=== PATIENT | female | born 1965 | race Caucasian/White ===

== ENCOUNTER → 2016-05-08 | Outpatient (CLI) | payer BC ==
--- NOTE | 2016-05-16 09:48 | MM ---
Reason for exam: screening (asymptomatic). Last mammogram was performed 2 years and 3 months ago. History: Patient is postmenopausal. Physical Findings: A clinical breast exam by your physician is recommended on an annual basis and results should be correlated with mammographic findings. MG Screening Mammo w CAD Bilateral CC and MLO view(s) were taken. Prior study comparison: January 25, 2014, mammogram, performed at [place]. There is no discrete abnormality. No significant changes when compared with prior studies. ASSESSMENT: Negative, BI-RAD 1 RECOMMENDATION: Routine screening mammogram of both breasts in 1 year.
== END | disposition home or self-care (01) ==
LOC: RADMAMWWP 10:54
PROVIDERS: ATTEND Obstetrics & Gynecology
DX: Z12.31 Encounter for screening mammogram for malignant neoplasm of breast (principal)

== ENCOUNTER → 2016-10-26 | Outpatient (CLI) | payer BC ==
--- NOTE | 2016-10-26 15:29 | XR ---
EXAMINATION TYPE: XR cervical spine comp DATE OF EXAM: 10/26/2016 COMPARISON: NONE HISTORY: Spondylosis TECHNIQUE: 5 view cervical spine FINDINGS: Odontoid is obscured by overlying occiput. Foramen are patent. Prevertebral space is normal . Disc height and vertebral body heights are preserved. Posterior spinal lamellar line is intact. IMPRESSION: 1. Normal cervical spine.
== END | disposition home or self-care (01) ==
LOC: RADXRYALE 14:17
PROVIDERS: ATTEND Internal Medicine
DX: M47.892 Other spondylosis, cervical region (principal)
CPT/HCPCS: 72050

== ENCOUNTER → 2016-11-02 | Outpatient (CLI) | payer BC ==
--- NOTE | 2016-11-03 08:38 | US ---
EXAMINATION TYPE: US thyroid st tissue head/neck DATE OF EXAM: 11/02/2016 COMPARISON: NONE CLINICAL HISTORY: 51-year-old female E05.90 Thyrotoxia. TECHNIQUE: Multiple sonographic images of the thyroid gland are obtained. FINDINGS: Right Lobe: 4.3 x 1.3 x 1.5 cm Left Lobe: 4.2 x 1.5 x 1.0 cm Isthmus Thickness: 0.3 cm There is homogeneous glandular parenchyma without discrete nodule. Bilateral neck scanned, no evidence of lymphadenopathy. IMPRESSION: Normal sonographic appearance to the thyroid gland. No discrete nodule.
== END | disposition home or self-care (01) ==
LOC: RADUSMAIN 15:51
PROVIDERS: ATTEND Internal Medicine
DX: E05.90 Thyrotoxicosis, unspecified without thyrotoxic crisis or storm (principal)
CPT/HCPCS: 76536

== ENCOUNTER → 2016-11-20 | Outpatient (CLI) | payer BC ==
--- NOTE | 2016-11-21 11:56 | NM ---
EXAMINATION TYPE: NM thyroid image w uptake DATE OF EXAM: 11/21/2016 COMPARISON: Thyroid ultrasound November 02, 2016. HISTORY: Thyrotoxicosis per order. TECHNIQUE: After the intravenous administration of 10.78 mCi Tc 99m Sodium Pertechnetate, thyroid louise ging is performed 10 minutes post injection. Thyroid iodine uptake is calculated after the oral admin istration of18.6 NM uCi I-131 capsule. FINDINGS: There is normal distribution of activity throughout the gland on scan images. The 4 hour i odine uptake is calculated at 6%, slightly deviated from the normal range (normal range 8-14%). The 2 4-hour iodine uptake is calculated at 16% (normal range 15-35%), lower limits of normal. IMPRESSION: Normal thyroid scan with uptake lower limits of normal.
== END | disposition home or self-care (01) ==
LOC: RADNMMAIN 10:40
PROVIDERS: ATTEND Internal Medicine
DX: E05.90 Thyrotoxicosis, unspecified without thyrotoxic crisis or storm (principal)
CPT/HCPCS: 78014; A9528; A9512

== ENCOUNTER → 2017-03-29 | Outpatient (CLI) | payer BC ==
--- NOTE | 2017-03-29 15:20 | XR ---
EXAMINATION TYPE: XR knee complete RT DATE OF EXAM: 03/29/2017 CLINICAL HISTORY: Right knee pain for 6 months TECHNIQUE: Three views of the right knee are obtained. COMPARISON: None. FINDINGS: There is no acute fracture/dislocation evident in right knee. There is mild spurring hurley lofemoral compartment. There is mild joint space loss medial tibiofemoral compartment. The overlying soft tissue appears unremarkable. IMPRESSION: There are mild degenerative changes in right knee as detailed above.
--- NOTE | 2017-03-29 15:22 | XR ---
EXAMINATION TYPE: XR abdomen 1V DATE OF EXAM: 03/29/2017 1:52 PM CLINICAL HISTORY: Bilateral flank pain and pressure, history of kidney stones. TECHNIQUE: Single supine KUB image of the abdomen is obtained. COMPARISON: None. FINDINGS: There is 7 mm calculus left kidney felt midpole level inferior L2 level. There is no defini te right-sided nephrolithiasis. Left-sided pelvic phleboliths are felt present. Cholecystectomy clips are noted. There are surgical clips and sutures epigastric region presumed rela scott to gastric bypass surgery. There is overall nonobstructive bowel gas pattern. Visualized osseous structures are intact. IMPRESSION: There is 7 mm left renal calculus.
== END | disposition home or self-care (01) ==
LOC: RADXRYALE 13:39
PROVIDERS: ATTEND Internal Medicine
DX: N20.0 Calculus of kidney (principal); M22.2X2 Patellofemoral disorders, left knee; M25.861 Other specified joint disorders, right knee; M25.561 Pain in right knee
CPT/HCPCS: 74018

== ENCOUNTER 2017-07-26 07:27 | Day surgery (SDC) | payer BC ==
[2017-07-24 12:22] VITALS: BMI 28.9
[~2017-07-26 07:27] MED LIST: LIDOCAINE 1% 20 ML VIAL (10MG/ML) FOR IV START INTRADERMA PRN; MIDAZOLAM 2 MG/2 ML VIAL IV PRN
[2017-07-26 07:47] VITALS: TEMP 98
[2017-07-26] MEDS: LACTATED RINGERS 1,000 ML IV SCH ×2 (08:07→08:48)
[2017-07-26] MEDS ORDERED: PROPOFOL 10 MG/ML 20 ML VIAL IV ONE (08:49)
--- NOTE | 2017-07-26 09:12 | P.PCN ---
Date of Procedure: 07/26/17 Procedure(s) Performed: BRIEF HISTORY: Patient is a 52-year-old pleasant white female scheduled for an elective colonoscopy as a part of screening for colorectal neoplasia. PROCEDURE PERFORMED: Colonoscopy. PREOPERATIVE DIAGNOSIS: Screening for colon cancer. IV sedation per Anesthesia. PROCEDURE: After informed consent was obtained, the patient, was brought into the endoscopy unit. IV sedation was administered by Anesthesia under continuous monitoring. Digital rectal examination was normal. Initially the Olympus CF- 160 flexible video colonoscope was then inserted in the rectum, gradually advanced into the cecum without any difficulty. Careful examination was performed as the scope was gradually being withdrawn. Ileocecal valve and the appendiceal orifice were visualized and appeared normal. Prep was excellent. Mucosa of the cecum, ascending colon, transverse colon, descending colon, sigmoid colon, and rectum appeared normal. Retroflexion was performed in the rectum and no lesions were seen. The patient tolerated the procedure well. IMPRESSION: Normal-appearing colon from rectum to cecum with no evidence of colorectal neoplasia but. RECOMMENDATIONS: Findings of this examination were discussed with the patient as his family. She was advised to have a repeat screening colonoscopy in 10 years.
[2017-07-26 09:22] VITALS: RESP 16
[2017-07-26] MEDS ORDERED: IBUPROFEN 200 MG TAB PO ONE (09:30)
[2017-07-26 09:34] VITALS: BP 124/81; PULSE 58
== END 2017-07-26 09:59 | disposition home or self-care (01) ==
LOC: ORWHC2ENDO 07:27
PROVIDERS: ATTEND Internal Medicine Gastroenterology
DX: Z12.11 Encounter for screening for malignant neoplasm of colon (principal); Z79.899 Other long term (current) drug therapy
CPT/HCPCS: J2704; G0121

== ENCOUNTER → 2018-04-18 | Outpatient (CLI) | payer BC ==
--- NOTE | 2018-04-21 14:59 | MM ---
Reason for exam: screening (asymptomatic). Last mammogram was performed 1 year and 11 months ago. History: Patient is postmenopausal. Physical Findings: A clinical breast exam by your physician is recommended on an annual basis and results should be correlated with mammographic findings. MG Screening Mammo w CAD Bilateral CC and MLO view(s) were taken. Prior study comparison: May 08, 2016, bilateral MG screening mammo w CAD. January 25, 2014, mammogram, performed at [place]. The breast tissue is heterogeneously dense. This may lower the sensitivity of mammography. There is no discrete abnormality. No significant changes when compared with prior studies. ASSESSMENT: Negative, BI-RAD 1 RECOMMENDATION: Routine screening mammogram of both breasts in 1 year.
== END ==
LOC: RADMAMWWP 09:13
PROVIDERS: ATTEND Obstetrics & Gynecology
DX: Z12.31 Encounter for screening mammogram for malignant neoplasm of breast (principal)
CPT/HCPCS: 77067

== ENCOUNTER → 2018-04-18 | Outpatient (CLI) | payer BC ==
--- NOTE | 2018-04-18 11:22 | BD ---
EXAMINATION TYPE: Axial Bone Density DATE OF EXAM: 04/18/2018 COMPARISON: NONE CLINICAL HISTORY: 53 YR OLD FEMALE....ICD-10 CODE: Z13.820 OSTEOPOROSIS SCREENING Height: 60.5 Weight: 160 FRAX RISK QUESTIONS: History of Fracture in Adulthood: YES RISK FACTORS HISTORY OF: HX OF BILAT FEET FRACTURES, RT BREAK AT AGE 53 Active: FAIRLY Postmenopausal woman: YES, AT AGE 49 MEDICATIONS: Additional Medications: CALCIUM AND VIT D, Additional History: NOTHING ADDITIONAL TO ADD EXAM MEASUREMENTS: Bone mineral densitometry was performed using the Miyowa System. Bone mineral density as measured about the Lumbar spine is: ----- L1-L4(G/cm2): 1.338 T Score Values are as follows: ----- L1: 1.0 ----- L2: 1.4 ----- L3: 1.8 ----- L4: 0.9 ----- L1-L4: 1.3 Bone mineral density FIRST DEXA SCAN AT [facility] Bone mineral density about the R hip (g/cm2): 1.174 Bone mineral density about the L hip (g/cm2): 1.144 T Score values are as follows: -----R Neck: 1.0 -----L Neck: 0.6 -----R Total: 1.3 -----L Total: 1.1 Bone mineral density FIRST DEXA SCAN AT [facility] FRAX%s: THERE IS A 6.5% CHANCE FOR A MAJOR OSTEOPOROTIC FX AND A 0.1% FOR HIP....PROBABILITY OF FX IN 10 YRS TIME IMPRESSION: No evidence for osteoporosis or osteopenia. NOTE: T-SCORE=SD OF THE YOUNG ADULT MEAN.
== END | disposition home or self-care (01) ==
LOC: RADBDWWP 09:17
PROVIDERS: ATTEND Psychiatry & Neurology Neurology
DX: Z13.820 Encounter for screening for osteoporosis (principal)
CPT/HCPCS: 77080

== ENCOUNTER → 2019-05-05 | Outpatient (CLI) | payer BC ==
--- NOTE | 2019-05-06 10:50 | MM ---
Reason for exam: screening (asymptomatic). Last mammogram was performed 1 year and 1 month ago. History: Patient is postmenopausal. Took hormonal contraceptives for 10 years. Physical Findings: A clinical breast exam by your physician is recommended on an annual basis and results should be correlated with mammographic findings. MG 3D Screening Mammo W/Cad Bilateral CC and MLO view(s) were taken. Prior study comparison: April 18, 2018, bilateral MG screening mammo w CAD. May 08, 2016, bilateral MG screening mammo w CAD. There are scattered fibroglandular densities. Benign appearing bilateral calcifications. No suspicious abnormality. No significant changes when compared with prior studies. ASSESSMENT: Benign, BI-RAD 2 RECOMMENDATION: Routine screening mammogram of both breasts in 1 year.
== END | disposition home or self-care (01) ==
LOC: RADMAMWWP 07:28
PROVIDERS: ATTEND Obstetrics & Gynecology
DX: Z12.31 Encounter for screening mammogram for malignant neoplasm of breast (principal)
CPT/HCPCS: 77063; 77067

== ENCOUNTER → 2020-06-14 | Outpatient (CLI) | payer BC ==
--- NOTE | 2020-06-15 13:40 | MM ---
Reason for exam: screening (asymptomatic). Last mammogram was performed 1 year and 1 month ago. History: Patient is postmenopausal. Took hormonal contraceptives for 10 years. Physical Findings: A clinical breast exam by your physician is recommended on an annual basis and results should be correlated with mammographic findings. MG 3D Screening Mammo W/Cad Bilateral CC, MLO, and XCCL view(s) were taken. Prior study comparison: May 05, 2019, bilateral MG 3d screening mammo w/cad. April 18, 2018, bilateral MG screening mammo w CAD. There are scattered fibroglandular densities. No significant changes when compared with prior studies. ASSESSMENT: Benign, BI-RAD 2 RECOMMENDATION: Routine screening mammogram of both breasts in 1 year.
== END ==
LOC: RADMAMWWP 13:29
PROVIDERS: ATTEND Obstetrics & Gynecology
DX: Z12.31 Encounter for screening mammogram for malignant neoplasm of breast (principal); Z78.0 Asymptomatic menopausal state
CPT/HCPCS: 77063; 77067

== ENCOUNTER → 2020-09-24 | Outpatient (CLI) | payer BC ==
--- NOTE | 2020-09-24 17:19 | MR ---
EXAMINATION TYPE: MR brain wo/w con DATE OF EXAM: 09/24/2020 COMPARISON: 07/19/2015 HISTORY: Bilateral leg weakness, greater on the right. MS, compare to prior MR 07-19-15. CONTRAST: Standard multiplanar, multisequence MRI departmental protocol utilizing 10 mL intravenous Gadavist ga dolinium contrast. Ventricles have normal size. There is no mass effect nor midline shift. The diffusion images show no sign of an acute infarct. There is 3 mm focus of increased signal in the white matter left posterior temporal lobe. There is similar 3 mm focus right posterior frontal lobe white matter. There are 2 sm all 2 mm foci of increased signal in the left frontal lobe white matter. There is no evidence of cere bral cortical edema. The sella turcica appears normal. There is 5 mm area of mild increased signal in the body of the corpus callosum on the FLAIR images. Brainstem is intact. There is no evidence of or bital mass. There is normal enhancement of the venous sinuses. There is no pathologic enhancement. IMPRESSION: White matter mild signal changes would be consistent with demyelinating disease. No adverse change co mpared to old exam. No evidence of any new lesion.
== END | disposition home or self-care (01) ==
LOC: RADMRIMAIN 08:04
PROVIDERS: ATTEND Psychiatry & Neurology Neurology
DX: G35 Multiple sclerosis (principal)
CPT/HCPCS: 70553; A9585

== ENCOUNTER → 2020-11-16 | Outpatient (CLI) | payer BC | END | disposition home or self-care (01) | LOC: LABWHC1 14:05 | PROVIDERS: ATTEND Emergency Medicine | DX: Z20.822 Contact with and (suspected) exposure to COVID-19 (principal) | CPT/HCPCS: 87635; C9803 ==

== ENCOUNTER → 2020-11-17 | Outpatient (CLI) | payer BC | END | disposition home or self-care (01) | LOC: LABWHC1 14:15 | PROVIDERS: ATTEND Emergency Medicine | DX: Z20.822 Contact with and (suspected) exposure to COVID-19 (principal) | CPT/HCPCS: 87635; C9803 ==

== ENCOUNTER → 2021-01-10 | Outpatient (CLI) | payer BC, OTHER | END | disposition home or self-care (01) | LOC: LABWHC1 09:56 | PROVIDERS: ATTEND Emergency Medicine | DX: Z20.822 Contact with and (suspected) exposure to COVID-19 (principal) | CPT/HCPCS: 87635 ==

== ENCOUNTER → 2021-02-11 | Outpatient (CLI) | payer BC ==
[2021-02-11 18:00] LABS: HCT 43.6 % (37.2-46.3); HGB 14.1 g/dL (12.0-15.0); MCH 30.5 pg (27.0-32.0); MCHC 32.3 g/dL (32.0-37.0); MCV 94.2 fL (80.0-97.0); Mean Platelet Volume 10.8 fL (9.5-12.2); Platelet Count 277 X 10*3/uL (140-440); RBC 4.63 X 10*6/uL (4.10-5.20); RDW 13.2 % (11.5-14.5); WBC 5.05 X 10*3/uL (4.50-10.00)
[2021-02-11 20:50] LABS: % Iron Saturation 32.01 (12.00-45.00); ALT 27 U/L (8-44); AST 25 U/L (13-35); African American GFR (CKD) 105.3 (60.0-200.0); Albumin 4.1 g/dL (3.8-4.9); Albumin/Globulin Ratio 1.74 (1.60-3.17); Alkaline Phosphatase 103 U/L (41-126); BUN/Creat Ratio 25.03 Ratio (12.00-20.00); Blood Urea Nitrogen 18.8 mg/dL (9.0-27.0); Calcium 9.1 mg/dL (8.7-10.3); Carbon Dioxide 20.7 mmol/L (21.6-31.8); Chloride 108 mmol/L (96-109); Chol/HDL Ratio 4.09 Ratio; Ferritin 73.3 ng/mL (10.0-291.0); Globulin 2.3 g/dL (1.6-3.3); Glucose 133 mg/dL (70-110); Iron 108 ug/dL (50-170); LDL Cholesterol,Calculated 134.5 mg/dL (0.0-131.0); Magnesium 1.9 mg/dL (1.5-2.4); Non-African American GFR(CKD) 90.9 (60.0-200.0); Phosphorus 3.5 mg/dL (2.4-5.1); Potassium 4.3 mmol/L (3.5-5.5); Prealbumin 25.1 mg/dL (18.0-42.0); Sodium 141 mmol/L (135-145); Total Bilirubin <0.20 mg/dL (0.30-1.20); Total Iron Binding Capacity 337 ug/dL (228-460); Total Protein 6.4 g/dL (6.2-8.2)
[2021-02-11 20:54] LABS: INR 0.95 (0.90-1.11); Partial Thromboplastin Time 28.2 sec (23.5-31.0); Prothrombin Time 10.8 sec (9.9-11.9)
[2021-02-11 21:34] LABS: Folate, Serum >20.00 ng/mL (4.40-31.00)
[2021-02-13 13:26] LABS: Zinc, Serum 70 ug/dL (60-130)
[2021-02-13 15:15] LABS: Anabasine Urine <2.0 ng/mL (<2.0)
[2021-02-14 06:42] LABS: Vitamin A 66 ug/dL (38-106)
[2021-02-14 11:42] LABS: Vit B1(Thiamine) 62 ug/L (38-122)
== END | disposition home or self-care (01) ==
LOC: LABWHC1 10:05
PROVIDERS: ATTEND Surgery Plastic and Reconstructive Surgery
DX: Z71.51 Drug abuse counseling and surveillance of drug abuser (principal); K50.90 Crohn's disease, unspecified, without complications; N19 Unspecified kidney failure; E55.9 Vitamin D deficiency, unspecified; E44.0 Moderate protein-calorie malnutrition; D50.8 Other iron deficiency anemias; E89.1 Postprocedural hypoinsulinemia
CPT/HCPCS: 36415; 80053; 80061; 80323; 82306; 82525; 82607; 82728; 82746; 83036; 83540; 83550; 83735; 83970; 84100; 84134; 84255; 84425; 84443; 84590; 84630; 85027; 85610; 85730; 93005

== ENCOUNTER → 2021-03-15 | Outpatient (CLI) | payer BC, OTHER | END | disposition home or self-care (01) | LOC: LABWHC1 07:49 | PROVIDERS: ATTEND Emergency Medicine | DX: Z20.822 Contact with and (suspected) exposure to COVID-19 (principal) | CPT/HCPCS: 87635 ==

== ENCOUNTER → 2021-03-16 | Outpatient (CLI) | payer BC ==
--- NOTE | 2021-03-16 13:14 | FL ---
SINGLE CONTRAST ESOPHAGRAM: CLINICAL HISTORY: 56-year-old female R1 3.10, dysphagia, patient with GERD and difficulty swallowing . History of sleeve gastrectomy in 2015. TECHNIQUE: Single contrast exam performed with thin barium. Total fluoroscopy time: 1 minute 31 seconds. Total images: 33. FINDINGS: The patient swallowed oral contrast without difficulty or delay. Esophageal peristalsis and motility are within normal limits. There is prompt passage of contrast from the esophagus into the stomach. There are postsurgical spann es of sleeve gastrectomy demonstrated with a mild overdistention of the sleeve. During prone drinking, a small sliding hiatal hernia becomes evident. Gastroesophageal reflux could not be elicited with Valsalva or positional maneuvers. IMPRESSION: 1. Small sliding hiatal hernia which becomes apparent on the prone drinking images. Unable to elicit gastroesophageal reflux during the course of the exam. 2. Relatively dilated appearing gastric sleeve may explain the patient's recurrent weight gain. Clini jeanie correlate.
== END | disposition home or self-care (01) ==
LOC: RADUSWWP 09:50
PROVIDERS: ATTEND Surgery Plastic and Reconstructive Surgery
DX: K44.9 Diaphragmatic hernia without obstruction or gangrene (principal); R13.10 Dysphagia, unspecified; Z98.84 Bariatric surgery status
CPT/HCPCS: 74220

== ENCOUNTER → 2021-03-16 | Outpatient (CLI) | payer BC, OTHER | END | disposition home or self-care (01) | LOC: LABWHC1 08:02 | PROVIDERS: ATTEND Emergency Medicine | DX: Z20.822 Contact with and (suspected) exposure to COVID-19 (principal) | CPT/HCPCS: 87635 ==

== ENCOUNTER → 2021-05-12 | Outpatient (CLI) | payer BC ==
[2021-05-13 14:29] LABS: Coronavirus SARS CoV-2 Not Detected (Not Detected)
== END | disposition home or self-care (01) ==
LOC: LABPAT 08:12
PROVIDERS: ATTEND Surgery Plastic and Reconstructive Surgery
DX: Z03.818 Encounter for observation for suspected exposure to other biological agents ruled out (principal); Z20.822 Contact with and (suspected) exposure to COVID-19
CPT/HCPCS: U0003; C9803; U0005

== ENCOUNTER → 2021-05-15 | Day surgery (SDC) | payer BC ==
[2021-05-10 18:14] VITALS: BMI 43.0
[~2021-05-15] MED LIST changes: +LACTATED RINGERS 1,000 ML IV SCH; +LIDOCAINE 1% (10MG/ML) FOR IV START INTRADERMA PRN; -LIDOCAINE 1% 20 ML VIAL (10MG/ML) FOR IV START INTRADERMA PRN; +LIDOCAINE 1% INJ 10MG/ML (20 ML MDV) ONE; -MIDAZOLAM 2 MG/2 ML VIAL IV PRN; +PROPOFOL 10 MG/ML 20 ML VIAL IV ONE
--- NOTE | 2021-05-15 07:49 | P.GSHP ---
History of Present Illness H&P Date: 05/15/21 CHIEF COMPLAINT: GERD HISTORY OF PRESENT ILLNESS: The patient is a 56-year-old female who presents reports gastroesophageal reflux disease. Upper endoscopy was offered for further evaluation and management. PAST MEDICAL HISTORY: Please see list. PAST SURGICAL HISTORY: Please see list. MEDICATIONS: Please see list. ALLERGIES: Please see list. SOCIAL HISTORY: No illicit drug use FAMILY HISTORY: No reports of Crohn disease or ulcerative colitis. REVIEW OF ORGAN SYSTEMS: CONSTITUTIONAL: No reports of fevers or chills. GI: Denies any blood in stools or constipation. PHYSICAL EXAM: VITAL SIGNS: Stable GENERAL: Well-developed and pleasant in no acute distress. HEENT: No scleral icterus. Extraocular movements grossly intact. Moist buccal mucosa. NECK: Supple without lymphadenopathy. CHEST: Unlabored respirations. Equal bilateral excursions. CARDIOVASCULAR: Regular rate and rhythm. Distal 2+ pulses. ABDOMEN: Soft, nondistended. MUSCULOSKELETAL: No clubbing, cyanosis, or edema. ASSESSMENT: 1. Gastroesophageal reflux disease PLAN: 1. Recommend proceeding with an upper endoscopy Past Medical History Past Medical History: Fibromyalgia, GERD/Reflux, Neurologic Disorder, Osteoarthritis (OA) Additional Past Medical History / Comment(s): multiple sclerosis. History of Any Multi-Drug Resistant Organisms: None Reported Past Surgical History: Appendectomy, Bariatric Surgery, Cholecystectomy, Orthopedic Surgery, Tubal Ligation Additional Past Surgical History / Comment(s): gastric sleeve 2015. ORIF left 5th metatarsal. right knee arthoscopy. bilateral cataracts. multiple laser surgeries on bilateral eyes. Past Anesthesia/Blood Transfusion Reactions: No Reported Reaction Smoking Status: Former smoker - Past Family History Mother Family Medical History: Cancer Father Family Medical History: Cancer, Deep Vein Thrombosis (DVT) Medications and Allergies Home Medications Medication Instructions Recorded Confirmed Type Baclofen [Lioresal] 20 mg PO HS 07/24/17 05/10/21 History Cholecalciferol [Vitamin D3 (25 25 mcg PO DAILY 02/08/21 05/10/21 History Mcg = 1000 Iu)] Acyclovir [Zovirax] 200 mg PO DIRECTED PRN 05/10/21 05/10/21 History Butalb/Acetaminophen/Caffeine 1 - 2 cap PO Q4HR PRN 05/10/21 05/10/21 History [Fioricet 50-300-40 mg Capsule] Allergies Allergy/AdvReac Type Severity Reaction Status Date / Time No Known Allergies Allergy Verified 05/10/21 18:09
[2021-05-15 08:45] VITALS: TEMP 97.1
[2021-05-15 09:40] VITALS: RESP 16
--- NOTE | 2021-05-15 09:42 | P.PCN ---
Date of Procedure: 05/15/21 Description of Procedure: PREOPERATIVE DIAGNOSIS: Morbid obesity due to excess calories, BMI 44.5 Status post sleeve gastrectomy. Gastroesophageal reflux disease. Epigastric abdominal pain. POSTOPERATIVE DIAGNOSIS: Morbid obesity due to excess calories, BMI 44.5 Status post sleeve gastrectomy. Gastroesophageal reflux disease. Epigastric abdominal pain. Diaphragmatic hiatal hernia without obstruction. Chronic superficial gastritis. OPERATION: Esophagogastroduodenoscopy with cold forceps biopsies along the antrum. SURGEON: Rima Nj MD ANESTHESIA: MAC. INDICATIONS: The patient is a 56-year-old female who presents with a history of sleeve gastrectomy with gastroesophageal reflux disease. She is over 5 years out from her bariatric procedure. Benefits and risks of the procedure were described. Informed consent was obtained. DESCRIPTION: The patient was brought into the endoscopy suite and laid in the left lateral decubitus position. An Olympus gastroscope was passed along the posterior oropharynx down to the distal esophagus where the squamocolumnar junction was at 33 centimeters from the incisors remarkable for chronic erosive esophagitis, LA grade A without ulceration. The stomach was entered where she had a 2-cm hiatal hernia with a diaphragmatic hiatus found at 35 cm. The sleeve reservoir slightly enlarged. Chronic gastritis albeit mild was found along the antrum with cold biopsies obtained. The first through third portion of the duodenum was examined and unremarkable. The scope again had retroflexed along the antrum. The stomach was desufflated. The patient tolerated the procedure well. FINDINGS: No acute ulceration found along her sleeve. No corkscrewing sleeve gastrectomy. Squamocolumnar junction at 33 cm from the incisors. Diaphragmatic hiatus at 35 cm. Mildly enlarged gastric reservoir with prior history of sleeve gastrectomy allowing retroflexion of the gastroscope. Hiatal hernia 2 cm, fixed. LA grade A erosive esophagitis. No active duodenitis. Chronic gastritis. RECOMMENDATIONS: Upper endoscopy as needed. May benefit from antireflux operation. Continue with current therapy. Plan - Discharge Summary Discharge Rx Participant: No New Discharge Prescriptions: Continue Baclofen [Lioresal] 20 mg PO HS Cholecalciferol [Vitamin D3 (25 Mcg = 1000 Iu)] 25 mcg PO DAILY Butalb/Acetaminophen/Caffeine [Fioricet 50-300-40 mg Capsule] 1 - 2 cap PO Q4HR PRN PRN Reason: Migraine Headache Acyclovir [Zovirax] 200 mg PO DIRECTED PRN PRN Reason: Cold Sores Discharge Medication List Baclofen [Lioresal] 20 mg PO HS 07/24/17 [History] Cholecalciferol [Vitamin D3 (25 Mcg = 1000 Iu)] 25 mcg PO DAILY 02/08/21 [History] Acyclovir [Zovirax] 200 mg PO DIRECTED PRN 05/10/21 [History] Butalb/Acetaminophen/Caffeine [Fioricet 50-300-40 mg Capsule] 1 - 2 cap PO Q4HR PRN 05/10/21 [History] [place] [facility] [facility] [place] Patient Instructions/Handouts: Hiatal Hernia (DC), Gastroesophageal Reflux Disease (DC) Discharge Disposition: HOME SELF-CARE
[2021-05-15 09:52] VITALS: BP 138/102; PULSE 66
== END | disposition home or self-care (01) ==
LOC: ORWHC2ENDO 08:05
PROVIDERS: ATTEND Surgery Plastic and Reconstructive Surgery
DX: K29.50 Unspecified chronic gastritis without bleeding (principal); K21.9 Gastro-esophageal reflux disease without esophagitis; K44.9 Diaphragmatic hernia without obstruction or gangrene; E66.01 Morbid (severe) obesity due to excess calories; Z68.41 Body mass index [BMI] 40.0-44.9, adult; Z98.84 Bariatric surgery status; M79.7 Fibromyalgia; Z87.891 Personal history of nicotine dependence; M19.90 Unspecified osteoarthritis, unspecified site; G35 Multiple sclerosis; Z90.49 Acquired absence of other specified parts of digestive tract; Z98.51 Tubal ligation status; Z98.42 Cataract extraction status, left eye; Z98.41 Cataract extraction status, right eye; Z98.890 Other specified postprocedural states; Z80.9 Family history of malignant neoplasm, unspecified; Z82.49 Family history of ischemic heart disease and other diseases of the circulatory system; Z79.891 Long term (current) use of opiate analgesic; Z79.899 Other long term (current) drug therapy
CPT/HCPCS: 88305; 43239; J2001; J2704

== ENCOUNTER → 2021-05-24 | Outpatient (CLI) | payer BC ==
--- NOTE | 2021-05-24 16:50 | P.BASOAP ---
Subjective Progress Note Date: 05/24/21 DATE OF SERVICE: 05/24/2021 CHIEF COMPLAINT: Status post sleeve gastrectomy HISTORY OF PRESENT ILLNESS: Raina Cintron is a 55-year-old female status post sleeve gastrectomy in 2014 at [facility] with Dr. Lerner. She is 7 years out. She comesin with weight re-gain and gastroesophageal reflux disease for over 1 year. At height of 5 feet 0 inches, her ideal body weight is 127 pounds. Her highest weight is 250 pounds, body mass index 48.9. Her lowest weight was 128 pounds in 2016. She has gained 102 pounds in 5 years. She comes in 227 pounds from 230 pounds, 4 months ago. She has lost 4 pounds, 4 months. Her body mass index is 44.3. She has lost 23 pounds lifetime. Lifetime percent excess weight loss of 19%. PAST MEDICAL HISTORY: 1. Morbid obesity due to excess calories 2. Body mass index of 48.9, initial 3. Osteoarthritis of the knees. 4. Multiple sclerosis 5. Hypothyroidism 6. Gastroesophageal reflux disease 7. Migraines 8. Fibromyalgia PAST SURGICAL HISTORY: 1. Sleeve gastrectomy, 2014 2. ORIF 5th toe, left 3. Right knee arthroscopy 4. Bilateral cataract removal 5. Appendectomy 6. Cholecystectomy 7. Tubal ligation HOME MEDICATIONS: Home Medications Medication Instructions Recorded Confirmed Baclofen [Lioresal] 20 mg PO HS 07/24/17 05/25/21 Cholecalciferol [Vitamin D3 (25 25 mcg PO DAILY 02/08/21 05/25/21 Mcg = 1000 Iu)] Acyclovir [Zovirax] 200 mg PO DIRECTED PRN 05/10/21 05/25/21 Butalb/Acetaminophen/Caffeine 1 - 2 cap PO Q4HR PRN 05/10/21 05/25/21 [Fioricet 50-300-40 mg Capsule] Previous Rx's Medication Instructions Recorded Levothyroxine Sodium [Synthroid] 50 mcg PO DAILY #30 tab 05/24/21 ALLERGIES: Allergies Allergy/AdvReac Type Severity Reaction Status Date / Time No Known Allergies Allergy Verified 05/10/21 18:09 SOCIAL HISTORY: Past tobacco use. FAMILY HISTORY: No family history of ulcerative colitis disease or Crohn's disease. Family history of morbid obesity. No lupus in the family. No reports of stomach or esophageal cancer. Has family history of DVT. Her mother, sister has trouble with weight. REVIEW OF ORGAN SYSTEMS: CONSTITUTIONAL: At height of 5 feet 0 inches, her ideal body weight is 127 pounds. Her highest weight is 250 pounds, body mass index 48.9. Her lowest weight was 128 pounds in 2016. Her body mass index is 45.1. HEENT: Denies any active troubles with vision or hearing. ENDOCRINE: Denies diabetes. Has hypothyroidism. CARDIOVASCULAR: Denies past reports of palpitations or heart attacks or chest pain. RESPIRATORY: Has daytime somnolence. Debies asthma. GASTROINTESTINAL: Denies any bright red blood per rectum. No diarrhea. No constipation. Has gastroesophageal reflux disease. GENITOURINARY: Denies bladder urgency. No recent blood in urine MUSCULOSKELETAL: Has lower back pain and joint pain. Has osteoarthritis of the knees. Has fibromyalgia. NEURO: Has migraines. No seizure disorders. PSYCH: Denies depression. No suicidal ideation. RHEUMATOLOGIC: No lupus. No rheumatoid arthritis. HEMATOLOGIC: Denies any abnormal bleeding or bruising. Family history of DVTs. SKIN: No rash. No skin cancer. PHYSICAL EXAM: VITAL SIGNS: Height 5 foot 0 inches, weight 227 pounds. BMI 44.3 Vital Signs Temp 97.9 F 05/24/21 16:57 Pulse 99 05/24/21 16:57 Resp BP 134/85 05/24/21 16:57 Pulse Ox GENERAL: Well-developed in no acute distress. HEENT: No scleral icterus. Extraocular movements grossly intact. Hears conversational speech. No nasal drainage. NECK: Supple without lymphadenopathy. CHEST: Nonlabored respirations with equal bilateral excursions. CARDIOVASCULAR: Regular rate and regular rhythm. Distal 2+ pulses. ABDOMEN: Obese, soft, nontender, nondistended. MUSCULOSKELETAL: No clubbing, cyanosis. NEURO: No focal or lateralizing signs. Cranial nerves 2 through 12 grossly within normal limits. PSYCH: Appropriate affect. Alert and oriented to person, place and time. SKIN: Good skin turgor. Well perfused. LABS: Reviewed. Triglycerides elevated. Cholesterol elevated. TSH 1.930. EGD FINDINGS: No acute ulceration found along her sleeve. No corkscrewing sleeve gastrectomy. Squamocolumnar junction at 33 cm from the incisors. Diaphragmatic hiatus at 35 cm. Mildly enlarged gastric reservoir with prior history of sleeve gastrectomy allowing retroflexion of the gastroscope. Hiatal hernia 2 cm, fixed. LA grade A erosive esophagitis. No active duodenitis. Chronic gastritis. EKG: Low voltage. Final Pathologic Diagnosis STOMACH, ANTRUM, BIOPSY: Mild chronic gastritis. No Helicobacter organisms seen on H+E staining. STUDIES: Barium swallow with hiatal hernia. This is my independent interpretation. ASSESSMENT: 1. Morbid obesity due to excess calories 2. Body mass index of 48.9, initial to 44.3 3. Osteoarthritis of the knees. 4. Multiple sclerosis 5. Hypothyroidism 6. Gastroesophageal reflux disease 7. Migraines 8. Fibromyalgia 9. Status post sleeve gastrectomy 10. Weight gain following bariatric procedure PLAN: 1. She has TSH above 1.0. Will try synthroid 25 mcg to increase metabolism. 2. She has a new hiatal hernia which may benefit from repair Assessment/Plan Plan: Date: Initial Weight: 113.398 kg Initial BMI: Current Weight: Current BMI: Type of Surgery: Total Volume in Band: Previous Volume: Volume Removed: Volume Added: Band Size:
[2021-05-24 16:58] VITALS: BP 134/85; PULSE 99; TEMP 97.9; BMI 44.3
== END ==
LOC: BARWHC3 16:49
PROVIDERS: ATTEND Surgery Plastic and Reconstructive Surgery
DX: E66.01 Morbid (severe) obesity due to excess calories (principal); M17.0 Bilateral primary osteoarthritis of knee; G35 Multiple sclerosis; E03.9 Hypothyroidism, unspecified; K21.9 Gastro-esophageal reflux disease without esophagitis; G43.909 Migraine, unspecified, not intractable, without status migrainosus; M79.7 Fibromyalgia; Z98.84 Bariatric surgery status; Z79.890 Hormone replacement therapy; Z87.891 Personal history of nicotine dependence; Z68.41 Body mass index [BMI] 40.0-44.9, adult
CPT/HCPCS: 99211

== ENCOUNTER → 2021-09-11 | Outpatient (CLI) | payer BC ==
[2021-09-11 13:14] VITALS: BMI 44.3
== END ==
LOC: BARWHC3 08:42
PROVIDERS: ATTEND Surgery Plastic and Reconstructive Surgery
DX: E66.01 Morbid (severe) obesity due to excess calories (principal); Z71.3 Dietary counseling and surveillance; Z87.891 Personal history of nicotine dependence; Z68.41 Body mass index [BMI] 40.0-44.9, adult
CPT/HCPCS: 97804

== ENCOUNTER → 2022-06-26 | Outpatient (CLI) | payer BC ==
--- NOTE | 2022-06-26 22:53 | MR ---
EXAMINATION TYPE: MR brain wo/w con DATE OF EXAM: 06/26/2022 9:58 AM CLINICAL INDICATION:Female, 57 years old with history of G35; Horace leg weakness, f/u MS COMPARISON: 09/24/2020 TECHNIQUE: Multi planar, multi sequence imaging was performed through the brain including: T1, T2, In version recovery, susceptibility weighted imaging and gradient echo imaging and Diffusion weighted im aging. The patient was then given intravenous contrast and multi planar, T1 fat-saturation images wer e obtained. IV Contrast: 10 cc Gadavist FINDINGS: Stable scattered white matter changes including the body of the corpus callosum and in the periventri cular and deep white matter. No evidence for postcontrast enhancement. The camilo-white junctions, ventricular system, basal cisterns appear unremarkable. Diffusion-weighted imaging shows no evidence of restricted diffusion to suggest acute/subacute infarct. Intracranial art erial flow voids are maintained. Midline structures show no abnormality. The susceptibility weighted images do not reveal any evidence for micro-hemorrhage. After administration of gadolinium, no abnorm al enhancement is seen. The bone marrow signal is within normal limits. Paranasal sinuses and mastoid air cells: No significant paranasal sinus disease. Visualized orbits: Orbital contents are intact. IMPRESSION: Scattered white matter changes changes without evidence for active demyelination. Overall findings si milar to prior in 2020. No evidence of intracranial mass, acute/subacute infarct, or abnormal enhance ment.
== END | disposition home or self-care (01) ==
LOC: RADMRIMAIN 09:03
PROVIDERS: ATTEND Internal Medicine
DX: G35 Multiple sclerosis (principal); R90.82 White matter disease, unspecified
CPT/HCPCS: 70553; A9585

== ENCOUNTER → 2022-09-28 | Outpatient (CLI) | payer BC ==
--- NOTE | 2022-09-28 09:45 | MM ---
Reason for Exam: Screening (asymptomatic). Last mammogram was performed 2 year(s) and 4 month(s) ago. Patient History: Menarche at age 13. First Full-Term at age 23. Postmenopausal. Patient used Hormonal Contraceptives for 10 years. Risk Values: Vero 5 year model risk: 1.2%. NCI Lifetime model risk: 8.1%. Prior Study Comparison: 04/18/2018 Bilateral Screening Mammogram, [facility]. 05/05/2019 Bilateral Screening Mammogram, [facility]. 06/14/2020 Bilateral Screening Mammogram, [facility]. Tissue Density: The breast tissue is almost entirely fat. Findings: Analyzed By CAD. There is no suspicious group of microcalcifications or new suspicious mass in either breast. Overall Assessment: Negative, BI-RAD 1 Management: Screening Mammogram of both breasts in [address] [facility] will attempt to contact patient to return for supplemental views and ultrasound if indicated. Patient should continue monthly self-breast exams. A clinical breast exam by your physician is recommended on an annual basis. This exam should not preclude additional follow-up of suspicious palpable abnormalities. Note on Vero scores and lifetime risk: 1. A Vero score greater than 3% is considered moderate risk. If this is the case, consider specialist referral to assess eligibility for a risk reducing agent. 2. If overall lifetime risk for the development of breast cancer is 20% or higher, the patient may qualify for future screening with alternating mammogram and breast MRI. Electronically signed and approved by: Neil Baum DO
== END | disposition home or self-care (01) ==
LOC: RADMAMWWP 08:29
PROVIDERS: ATTEND Obstetrics & Gynecology
DX: Z12.31 Encounter for screening mammogram for malignant neoplasm of breast (principal); Z78.0 Asymptomatic menopausal state
CPT/HCPCS: 77063; 77067

== ENCOUNTER → 2022-10-04 | Outpatient (CLI) | payer BC ==
--- NOTE | 2022-10-05 08:52 | CT ---
EXAMINATION TYPE: CT foot LT wo con DATE OF EXAM: 10/04/2022 COMPARISON: None HISTORY: left foot injury. [address]st metat[address] fx. [address] DLP: 214.90 mGycm Automated exposure control for dose reduction was used. CONTRAST: CT scan of the left foot is performed without contrast.. FINDINGS- There is a mildly displaced chip or avulsion fracture off the dorsal surface base first metatarsal. E xtends to the articular surface. Moderate hypertrophic arthropathy of the first MTP. Postsurgical changes involving the fifth digit ar e noted. Diffuse subcutaneous edema. IMPRESSION- 1. Mildly displaced intra-articular chip or avulsion fracture of the dorsal surface base first metata rsal.
== END | disposition home or self-care (01) ==
LOC: RADCTMAIN 17:14
PROVIDERS: ATTEND Orthopaedic Surgery
DX: S92.312A Displaced fracture of first metatarsal bone, left foot, initial encounter for closed fracture (principal); S92.302A Fracture of unspecified metatarsal bone(s), left foot, initial encounter for closed fracture; X58.XXXA Exposure to other specified factors, initial encounter

== ENCOUNTER → 2022-12-27 | Outpatient (CLI) | payer BC, OTHER ==
--- NOTE | 2022-12-27 18:34 | XR ---
EXAMINATION TYPE: XR chest 1V DATE OF EXAM: 12/27/2022 COMPARISON: NONE HISTORY: 57-year-old female preemployment TB assessment, Z021. TECHNIQUE: Single frontal view of the chest is obtained. FINDINGS: There is no focal air space opacity, pleural effusion, or pneumothorax seen. The cardiac silhouette size is within normal limits. Surgical material in the upper abdomen. IMPRESSION: No acute cardiopulmonary process.
== END | disposition home or self-care (01) ==
LOC: RADXRYALE 08:57
DX: Z02.1 Encounter for pre-employment examination (principal)
CPT/HCPCS: 71045

== ENCOUNTER → 2023-04-12 | Outpatient (CLI) | payer BC ==
--- NOTE | 2023-04-12 18:10 | BD ---
EXAMINATION TYPE: Axial Bone Density DATE OF EXAM: 04/12/2023 CLINICAL HISTORY: 58 years old Female. ICD-10 CODE: M85.851 OTH DISRD OF BONE DENSITY AND STRUCTURE, R Height: Weight: FRAX RISK QUESTIONS: History of Fracture in Adulthood: yes 3. Menopause before 45: no...at 49 RISK FACTORS HISTORY OF: nothing to note here MEDICATIONS: calcium and vit D...not routinely EXAM MEASUREMENTS: Bone mineral densitometry was performed using the [employer] System. Bone mineral density as measured about the Lumbar spine is: ----- L1-L4(G/cm2): 1.296 T Score Values are as follows: ----- L1: -0.2 ----- L2: 1.2 ----- L3: 1.7 ----- L4: 0.8 ----- L1-L4: 1.0 Z Score Values are as follows: ----- L1: -0.3 ----- L2: 1.0 ----- L3: 1.6 ----- L4: 0.7 ----- L1-L4: 0.8 Bone mineral density has: Decreased -3.1% since study of: 04.18.2018 Bone mineral density about the R hip (g/cm2): 1.189 Bone mineral density about the L hip (g/cm2): 1.147 T Score values are as follows: -----R Neck: 0.6 -----L Neck: 0.2 -----R Total: 1.4 -----L Total: 1.1 Z Score values are as follows: -----R Neck: 1.0 -----L Neck: 0.6 -----R Total: 1.4 -----L Total: 1.1 Bone mineral density has: Increased 0.8% since study of: 04.18.2018 FRAX%s: The graph provided illustrates a 8.1% chance for a major osteoporotic fx and a 0.1% chance fo r the hips probability for fx in 10 years time. IMPRESSION: Normal (Values between +1 and -1 indicate normal bone mass). Consider repeating this study in 5 year s or sooner if there is some new clinical indication. NOTE: T-SCORE=SD OF THE YOUNG ADULT MEAN.
== END | disposition home or self-care (01) ==
LOC: RADBDWWP 08:43
PROVIDERS: ATTEND Internal Medicine
DX: M85.851 Other specified disorders of bone density and structure, right thigh (principal); Z78.0 Asymptomatic menopausal state
CPT/HCPCS: 77080

== ENCOUNTER → 2023-06-07 | Outpatient (CLI) | payer BC ==
--- NOTE | 2023-06-07 09:16 | US ---
EXAMINATION TYPE: US arterial LE single level DATE OF EXAM: 06/07/2023 8:48 AM CLINICAL INDICATION: Female, 58 years old with history of I73.9 PAD; Pt states leg weakness, heavines s, and pain when walking 3-4 blocks/ pt states she has MS x 20 Yrs. History of: Smoker: Prior Hypertension: No Diabetic: No Hyperlipidemia: Yes TIA/CVA: No Previous Vascular Surgery: No CAD: No CA: No Vascular Ulcers: No Doppler Waveforms: Right: Multiphasic Left: Multiphasic Right Brachial Pressure: 138 Left Brachial Pressure: 129 Ankle-Brachial Indices: Right: 1.2 Left: 1.2 Toe Brachial Indices: Right: 0.7 Left: 0.7 IMPRESSION: Ankle-brachial indices within normal limits bilaterally. 1. Toe brachial indices suggest moderate disease.
== END | disposition home or self-care (01) ==
LOC: RADECHMAIN 07:50
PROVIDERS: ATTEND Internal Medicine
DX: R55 Syncope and collapse (principal); I73.9 Peripheral vascular disease, unspecified
CPT/HCPCS: 93270; 93922

== ENCOUNTER → 2023-09-17 | Outpatient (CLI) | payer BC ==
[2023-09-17 15:23] LABS: Basophils # (A) 0.04 X 10*3/uL (0.00-0.10); Basophils % (A) 0.7 %; Eosinophils # (A) 0.12 X 10*3/uL (0.04-0.35); Eosinophils % (A) 2.2 %; HCT 42.8 % (37.2-46.3); HGB 13.9 g/dL (12.0-15.0); Lymphocytes # (A) 1.52 X 10*3/uL (0.90-5.00); Lymphocytes % (A) 27.7 %; MCHC 32.5 g/dL (32.0-37.0); MCV 92.2 FL (80.0-97.0); Mean Platelet Volume 10.6 FL (9.5-12.2); Monocytes # (A) 0.42 X 10*3/uL (0.20-1.00); Monocytes % (A) 7.7 %; NRBC Per 100 WBC 0 X 10*3/uL (0.00-0.01); Neutrophils # (A) 3.38 X 10*3/uL (1.80-7.70); Neutrophils % (A) 61.5 %; Platelet Count 234 X 10*3/uL (140-440); RBC 4.64 X 10*6/uL (4.10-5.20); RDW 13.3 % (11.5-14.5); WBC 5.49 X 10*3/uL (4.50-10.00)
[2023-09-17 15:53] LABS: ALT 11 U/L (8-44); AST 21 U/L (13-35); Albumin 4.1 g/dL (3.8-4.9); Albumin/Globulin Ratio 1.86 Ratio (1.60-3.17); Alkaline Phosphatase 99 U/L (41-126); BUN/Creat Ratio 21.44 Ratio (12.00-20.00); Blood Urea Nitrogen 19.3 mg/dL (9.0-27.0); Calcium 9.1 mg/dL (8.7-10.3); Carbon Dioxide 23.8 mmol/L (21.6-31.8); Chloride 107 mmol/L (96-109); Chol/HDL Ratio 3.28 Ratio; Globulin 2.2 g/dL (1.6-3.3); Glucose 98 mg/dL (70-110); LDL Cholesterol,Calculated 113.5 mg/dL (0.0-131.0); Sodium 141 mmol/L (135-145); Total Bilirubin 0.2 mg/dL (0.3-1.2); Total Protein 6.3 g/dL (6.2-8.2)
== END | disposition home or self-care (01) ==
LOC: LABWHC1 11:07
PROVIDERS: ATTEND Internal Medicine
DX: Z00.00 Encounter for general adult medical examination without abnormal findings (principal); E78.2 Mixed hyperlipidemia; E55.9 Vitamin D deficiency, unspecified; E03.9 Hypothyroidism, unspecified; G62.9 Polyneuropathy, unspecified; M62.81 Muscle weakness (generalized); R73.01 Impaired fasting glucose; R35.0 Frequency of micturition; R20.8 Other disturbances of skin sensation
CPT/HCPCS: 36415; 80053; 80061; 82306; 83036; 84207; 84425; 84443; 85025

== ENCOUNTER → 2023-10-15 | Outpatient (CLI) | payer BC ==
--- NOTE | 2023-10-17 09:58 | MM ---
Reason for Exam: Screening (asymptomatic). Last screening mammogram was performed 12 month(s) ago. Patient History: Menarche at age 13. First Full-Term at age 23. Postmenopausal. Patient used Hormonal Contraceptives for 10 years. Risk Values: Vero 5 year model risk: 1.2%. NCI Lifetime model risk: 7.9%. Prior Study Comparison: 05/05/2019 Bilateral Screening Mammogram, [facility]. 06/14/2020 Bilateral Screening Mammogram, [facility]. 09/28/2022 Bilateral MG 3D screening mammo w/cad, [facility]. Tissue Density: There are scattered areas of fibroglandular density. Findings: Analyzed By CAD. There is no suspicious group of microcalcifications or new suspicious mass in either breast. Overall Assessment: Negative, BI-RAD 1 Management: Screening Mammogram of both breasts in 1 year. . Patient should continue monthly self-breast exams. A clinical breast exam by your physician is recommended on an annual basis. This exam should not preclude additional follow-up of suspicious palpable abnormalities. Note on Vero scores and lifetime risk: 1. A Vero score greater than 3% is considered moderate risk. If this is the case, consider specialist referral to assess eligibility for a risk reducing agent. 2. If overall lifetime risk for the development of breast cancer is 20% or higher, the patient may qualify for future screening with alternating mammogram and breast MRI. Electronically signed and approved by: Oumar Freeman M.D. Radiologis
== END | disposition home or self-care (01) ==
LOC: RADMAMWWP 12:58
PROVIDERS: ATTEND Internal Medicine
DX: Z12.31 Encounter for screening mammogram for malignant neoplasm of breast (principal); Z78.0 Asymptomatic menopausal state; R92.323 Mammographic fibroglandular density, bilateral breasts
CPT/HCPCS: 77063; 77067

== ENCOUNTER → 2023-10-15 | Outpatient (CLI) | payer BC ==
--- NOTE | 2023-10-16 11:18 | MR ---
EXAMINATION TYPE: MR cspine/tspine/lspine wo con DATE OF EXAM: 10/15/2023 3:23 PM CLINICAL INDICATION:Female, 58 years old with history of G35 MULTIPLE SCLEROSIS; PHH, Neck pain with numbness into left trap, headaches, Mid back pain and leg weakness, Low back pain with leg weakness COMPARISON: None TECHNIQUE: Multi planar, multi sequence imaging was performed utilizing: T1-weighted, T2-weighted, a nd turbo inversion recovery imaging of the cervical and lumbar spine. MR contrast: IV Contrast: cc , None. FINDINGS: CERVICAL: Alignment: The cervical vertebral bodies have preserved heights. Alignment is within normal limits gi arminda patient positioning. Bones: Bone signal is within normal limits. No abnormal bone marrow edema on inversion recovery seque nces. Cord: The spinal cord is unremarkable with regards to their signal intensity and morphology. Discs: Multilevel disc desiccation is present. C2-C3: No significant disc pathology. The spinal canal is patent. No neural foraminal stenosis. C3-C4: No significant disc pathology. The spinal canal is patent. No neural foraminal stenosis. C4-C5: No significant disc pathology. The spinal canal is patent. No neural foraminal stenosis. C5-C6: A disc osteophyte complex is present which minimally narrows the ventral subarachnoid space. Bilateral facet and uncovertebral joint arthropathy are present with mild bilateral neural foraminal stenosis. C6-C7: A disc osteophyte complex is present with mild spinal canal stenosis. Bilateral facet and unc overtebral joint arthropathy are present with mild bilateral neural foraminal stenosis. C7-T1: No significant disc pathology. The spinal canal is patent. No neural foraminal stenosis. Other: None. THORACIC: No evidence significant spinal canal or neural foraminal stenosis. Spinal cord is within no rmal limits LUMBAR: Alignment: The lumbar vertebral bodies have preserved heights and alignment. Cord: The conus medullaris and the distal spinal cord appear unremarkable with regards to their signa l intensity and morphology. Bones/Discs: Bone signal is within normal limits. Mild degeneration changes with osteophyte formation and facet joint arthropathy. T12-L1: No evidence of significant spinal canal stenosis or neural foraminal stenosis. L1-L2: No evidence of significant spinal canal stenosis or neural foraminal stenosis. L2-L3: No evidence of significant spinal canal stenosis or neural foraminal stenosis. L3-L4: Disc bulge and facet joint arthropathy result in mild spinal canal and moderate bilateral neur al foraminal stenosis. Trace bilateral facet joint effusions. L4-L5: Disc bulge and facet joint arthropathy result in mild spinal canal and moderate bilateral neur al foraminal stenosis. Trace bilateral facet joint effusions. L5-S1: The disc has a rounded posterior morphology without significant spinal canal stenosis. Facet j oint arthropathy with mild bilateral neural foraminal stenosis. Trace bilateral facet joint effusions . Other findings: None. IMPRESSION: 1. No definitive evidence of disc herniation or significant spinal canal stenosis. 2. Mild disc degeneration with associated osteoarthritic changes. No foraminal stenosis worse at L3- L4 and L4-L5 with moderate stenosis. No significant neural foraminal stenosis in the thoracic or cerv ical spine.
== END | disposition home or self-care (01) ==
LOC: RADMRIMAIN 13:16
PROVIDERS: ATTEND Psychiatry & Neurology Neurology
DX: G35 Multiple sclerosis (principal); M51.36 Other intervertebral disc degeneration, lumbar region; M47.816 Spondylosis without myelopathy or radiculopathy, lumbar region; M50.322 Other cervical disc degeneration at C5-C6 level; M99.61 Osseous and subluxation stenosis of intervertebral foramina of cervical region; R20.0 Anesthesia of skin; M54.50 Low back pain, unspecified
CPT/HCPCS: 72141; 72146; 72148

== ENCOUNTER → 2024-01-01 | Outpatient (CLI) | payer BC ==
--- NOTE | 2024-01-01 20:16 | MR ---
INDICATION: Patient age:Female; 58 years old; Reason for study: G35 MULTIPLE SCLEROSIS; PHH. COMPARISON: MRI brain 06/26/2022, 09/24/2020. TECHNIQUE: Multi planar, multi sequence imaging was performed through the brain. The patient was then given 9 cc of Gadavist intravenously and multi planar, T1 fat-saturation images were obtained. MS pr otocol. FINDINGS: The camlio-white junctions, ventricular system, basal cisterns appear unremarkable. Diffusion-weighted imaging shows no evidence of restricted diffusion to suggest acute/subacute infarct. Intracranial art erial flow voids are maintained. Midline structures show no abnormality. Several T2/FLAIR hyperintens e lesions demonstrated within the deep white matter. These are stable from prior examination with exa mple including a left parietal subcortical white matter 6 mm lesion on the sagittal FLAIR sequence im age 80, previously 6 mm when measured with similar technique. Approximately 10 lesions identified. No definitive new lesions or enhancement identified. The susceptibility weighted images do not reveal a ny evidence for micro-hemorrhage. The bone marrow signal is within normal limits. Stable 6 mm right medial maxillary sinus T2 hyperint ense mucous retention cyst. The remaining paranasal sinuses are unremarkable. Bilateral aphakia. IMPRESSION: 1. Stable scattered white matter changes without enhancement to suggest active demyelination. No new definitive lesions identified. 2. No evidence of intracranial mass, acute/subacute infarct or abnormal enhancement. [facility], , 01/01/2024 8:13 PM
== END | disposition home or self-care (01) ==
LOC: RADMRIMAIN 19:00
PROVIDERS: ATTEND Psychiatry & Neurology Neurology
DX: G35 Multiple sclerosis (principal)
CPT/HCPCS: 70553